=== PATIENT | female | born 1960 | race American Indian/Alaskan Native ===

== ENCOUNTER 2017-06-21 21:53 | Inpatient (IN) | payer MEDICAID ==
[2017-06-21 23:43] LABS: Basophils % (Auto) 1.4 % (0.0-1.8); Eosinophils % (Auto) 1.7 % (0.0-4.3); Hematocrit 40.9 % (30.3-42.9); Hemoglobin 13.4 gm/dl (10.1-14.3); Mean Corpuscular HGB Conc 33 % (30-34); Mean Corpuscular Hemoglobin 31 pg (28-32); Mean Corpuscular Volume 93 fl (79-97); Platelet Count 178 K/mm3 (140-440); Red Blood Count 4.38 M/mm3 (3.65-5.03); Red Cell Distribution Width 18.4 % (13.2-15.2); White Blood Count 3.4 K/mm3 (4.5-11.0)
[2017-06-21 23:55] LABS: Calcium 9.4 mg/dL (8.4-10.2); Chloride 97.2 mmol/L (98-107); Potassium 3.8 mmol/L (3.6-5.0)
[2017-06-22] MEDS ORDERED: ULTRAM PO ONE (08:49)
--- NOTE | 2017-06-22 09:06 | XRay Report ---
Chest 2 views: History: Shortness of breath, chest pain. Findings: Mild cardiomegaly. Suspicion of left pleural effusion. Suspicion of infiltrates left lower lobe. Right lung appears unremarkable. Impression: Cardiomegaly. Suspicion of minimal left pleural effusion and or infiltrate.
[2017-06-22] MEDS ORDERED: LASIX IV ONE (10:23)
[2017-06-22] MEDS ORDERED: BABY ASPIRIN PO ONE (10:23)
--- NOTE | 2017-06-22 10:31 | Emergency Department Report ---
HPI - General Chief Complaint: Dyspnea/Respdistress Time Seen by Provider: 06/22/17 10:07 - HPI HPI: This is a 57 year-old female presents to the emergency department with complaint of a few days of shortness of breath, some left-sided chest pain, swelling to the legs and to the breasts. She says she does not know why her breasts get edema but they have become large and uncomfortable over the past few days. She does say that she has a history of congestive heart failure for which she takes a very small amount of Lasix, 5 mg. She came to visit family about 3 weeks ago and currently lives in [place]. She also has a history of 2 heart valve replacements and an AICD in place as well as a stent in the legs. She has not taken anything for her symptoms prior to presentation. ED Past Medical Hx - Past Medical History Hx Congestive Heart Failure: Yes Additional medical history: gout,c-diff - Surgical History Additional Surgical History: 2 heart valves replaced.AICD,stents in legs - Social History Smoking Status: Never Smoker Substance Use Type: None ED Review of Systems ROS: Stated complaint: SHORTNESS OF BREATH/CHEST PAIN/NUMBNESS IN FINGERS Other details as noted in HPI Comment: All other systems reviewed and negative Constitutional: denies: chills, fever Eyes: denies: eye pain, eye discharge, vision change ENT: denies: ear pain, throat pain Respiratory: orthopnea, shortness of breath Cardiovascular: chest pain, edema Gastrointestinal: denies: abdominal pain, nausea, diarrhea Genitourinary: denies: urgency, dysuria, discharge Musculoskeletal: denies: back pain, joint swelling, arthralgia Skin: denies: rash, lesions Neurological: denies: headache, weakness, paresthesias Physical Exam - Physical Exam Vital Signs: Vital Signs 06/21/17 06/21/17 06/22/17 22:20 22:35 05:46 Temperature 98.2 F 98.2 F 97.7 F Pulse Rate 71 78 78 Respiratory 18 18 18 Rate Blood Pressure 171/87 171/87 158/81 O2 Sat by Pulse 93 94 97 Oximetry 06/22/17 06/22/17 09:51 09:58 Temperature Pulse Rate 76 Respiratory Rate Blood Pressure O2 Sat by Pulse 98 Oximetry Physical Exam: GENERAL: The patient is well-developed well-nourished. HENT: Normocephalic. Atraumatic. Patient has moist mucous membranes. EYES: Extraocular motions are intact. Pupils equal reactive to light bilaterally. NECK: Supple. Trachea is midline. CHEST/LUNGS: Clear to auscultation. There is no respiratory distress noted. HEART/CARDIOVASCULAR: Irregularly irregular with normal rate. No murmur. ABDOMEN: Abdomen is soft, nontender. Patient has normal bowel sounds. There is no abdominal distention. SKIN: Skin is warm and dry. NEURO: The patient is awake, alert, and oriented. The patient is cooperative. The patient has no focal neurologic deficits. The patient has normal speech. MUSCULOSKELETAL: There is no tenderness or deformity. There is no limitation range of motion. There is no evidence of acute injury. ED Course Vital Signs 06/21/17 06/21/17 06/22/17 22:20 22:35 05:46 Temperature 98.2 F 98.2 F 97.7 F Pulse Rate 71 78 78 Respiratory 18 18 18 Rate Blood Pressure 171/87 171/87 158/81 O2 Sat by Pulse 93 94 97 Oximetry 06/22/17 06/22/17 09:51 09:58 Temperature Pulse Rate 76 Respiratory Rate Blood Pressure O2 Sat by Pulse 98 Oximetry ED Medical Decision Making - Lab Data Result diagrams: 06/21/17 23:25 06/21/17 23:25 - EKG Data -: EKG Interpreted by Me - EKG Data When compared to previous EKG there are: previous EKG unavailable Interpretation: other (H a fibrillation, rate of 86, normal axis, no ST elevation CA, T-wave inversions to the lateral leads, Q waves to the septal leads) - Radiology Data Radiology results: report reviewed, image reviewed interpreted by me: Chest x-ray does not show any acute process. There are no pleural effusions, obvious pneumonia and there is no pneumothorax. CTA chest: History: Chest pain shortness of breath. Elevated d-dimer. Findings: The aorta is faintly visualized and grossly appears unremarkable. There is no evidence of pulmonary embolism noted. No pleural or pericardial effusion. Minimal left pleural thickening. Minimal discoid atelectasis left lower lobe. Impression: No definite evidence of pulmonary embolism. Discoid atelectasis left lower lobe. Transcribed By: PTP Dictated By: CHRISTY MILLS MD Electronically Authenticated By: CHRISTY MILLS MD Signed Date/Time: 06/22/17 1152 - Medical Decision Making 57-year-old female presents with some chest pain and shortness of breath as well as some edema to the legs and breast. BNP is greater than 15,000 without any renal insufficiency. Chest x-ray shows some pulmonary vascular congestion. D-dimer elevated to CT angiography was done that did not show any PE or dissection. Troponins have been negative 3 but are equivocal and starting to trend upwards. Patient has a history of atrial fibrillation and is subtherapeutic on her INR. She was given a Lovenox shot. She was given aspirin. She will be admitted to the hospital for further evaluation and treatment has been accepted for admission by the hospitalist, Dr Porras. Critical Care Time: No Critical care attestation.: If time is entered above; I have spent that time in minutes in the direct care of this critically ill patient, excluding procedure time. ED Disposition Clinical Impression: Subtherapeutic international normalized ratio (INR) Chest pain Qualifiers: Chest pain type: unspecified Qualified Code(s): R07.9 - Chest pain, unspecified CHF (congestive heart failure) Qualifiers: Congestive heart failure type: unspecified congestive heart failure type Congestive heart failure chronicity: acute on chronic Qualified Code(s): I50.9 - Heart failure, unspecified Atrial fibrillation Qualifiers: Atrial fibrillation type: unspecified Qualified Code(s): I48.91 - Unspecified atrial fibrillation Disposition: OP ADMIT IP TO THIS HOSP Is pt being admited?: Yes Condition: Stable Instructions: Chest Pain (ED) Referrals: PRIMARY CARE, [Primary Care Provider] - 3-5 Days Time of Disposition: 13:13
[2017-06-22 11:05] LABS: INR 1.26 (0.87-1.13)
[2017-06-22 11:06] LABS: Partial Thromboplastin Time 34.7 Sec. (24.2-36.6)
[2017-06-22] MEDS ORDERED: NACL ONE (11:21)
--- NOTE | 2017-06-22 11:58 | Cat Scan Report ---
CTA chest: History: Chest pain shortness of breath. Elevated d-dimer. Findings: The aorta is faintly visualized and grossly appears unremarkable. There is no evidence of pulmonary embolism noted. No pleural or pericardial effusion. Minimal left pleural thickening. Minimal discoid atelectasis left lower lobe. Impression: No definite evidence of pulmonary embolism. Discoid atelectasis left lower lobe.
[2017-06-22] MEDS ORDERED: LOVENOX SUB-Q ONE (12:16)
[2017-06-22] MEDS ORDERED: DUONEB *Not for PRN Use IH ONE (12:17)
[2017-06-22 12:28] LABS: Bacteria,Urine 1+ /HPF (Negative); Bilirubin,Urine NEG (Negative); Blood,Urine NEG (Negative); Ketones,Urine NEG (Negative); Leukocyte Esterase,Urine NEG (Negative); Mucus,Urine FEW /HPF; Nitrite,Urine NEG (Negative)
[2017-06-22] MEDS ORDERED: DULCOLAX PR PRN (15:28)
[2017-06-22] MEDS ORDERED: ZOFRAN IV PRN (15:28)
[2017-06-22] MEDS ORDERED: MILK OF MAGNESIA PO PRN (15:28)
[2017-06-22] MEDS ORDERED: MORPHINE IV PRN (15:44)
[2017-06-22] MEDS: PERCOCET 5/325 PO PRN (16:26)
--- NOTE | 2017-06-22 16:32 | History and Physical Report ---
History of Present Illness Chief complaint: sob History of present illness: 57 year old woman who states that she is visiting her daughter who just had a baby. She has a history of congestive heart failure, systolic, atrial fibrillation, history of mechanical heart valves, sp MVR metallic on Warfarin. Sp AICD placement, gout, she's currently visiting her daughter from [place]. She states that she takes Lasix everyday. And when her urine output is poor or she gains weight, that she takes double the dose of Lasix. She has tried doing that with no relief. She feels that she's short of breath she has orthopnea she' s gained she thinks anywhere between 10 to 20 pounds of water weight. She's uncomfortable and has really bad dypsnea on exertion. She's also complaining of bilateral lower extremity edema. She feels that her abdomen is swollen. Her breasts are swollen. All her clothes are too tight. She's only able to be comfortable when sitting completely upright. She's not able to recline or lay flat on the bed. She is also c/o constant dull, substernal 4/10 non radiating CP. Past History Past Medical History: other (CHF, afib, MVR-metallic) Past Surgical History: Other (stent in leg, heart valve replacement, sp AICD) Social history: no significant social history Family history: hypertension Medications and Allergies Allergies Allergy/AdvReac Type Severity Reaction Status Date / Time cyclobenzaprine Allergy Itching Verified 06/22/17 10:16 [From Flexeril] lisinopril Allergy Unknown Verified 06/22/17 10:16 Home Medications Medication Instructions Recorded Confirmed Last Taken Type Aspirin 81 mg PO QDAY 06/22/17 06/22/17 Unknown History Carvedilol [Coreg] 3.125 mg PO QDAY 06/22/17 06/22/17 Unknown History Digoxin 06/22/17 Unknown History Gabapentin [Neurontin] 600 mg PO Q8H 06/22/17 06/22/17 Unknown History Iron 06/22/17 Unknown History K-Dur 06/22/17 Unknown History Active Meds: Active Medications Acetaminophen (Tylenol) 650 mg PO Q4H PRN PRN Reason: Pain MILD(1-3)/Fever >100.5/M[place]ANO Albuterol/Ipratropium (Duoneb *Not For Prn Use*) 1 ampul IH Q6HRT [facility] Bisacodyl (Dulcolax) 10 mg [place] QDAY PRN PRN Reason: Constipation unrelieved by MOM Enoxaparin Sodium (Lovenox) 40 mg SUB-Q QDAY [facility] Magnesium Hydroxide (Milk Of Magnesia) 30 ml PO Q4H PRN PRN Reason: Constipation Methylprednisolone Sodium Succinate (Solu-Medrol) 40 mg IV Q24H [facility] Morphine Sulfate (Morphine) 2 mg IV Q4H PRN PRN Reason: Pain, Moderate (4-6) Ondansetron HCl (Zofran) 4 mg IV Q8H PRN PRN Reason: N/V unrelieved by Reglan Oxycodone/Acetaminophen (Percocet 5/325) 1 tab PO Q6H PRN PRN Reason: Pain, Moderate (4-6) Last Admin: 06/22/17 16:26 Dose: 1 tab Review of Systems All systems: negative (as stated in HPI, 14 point review otherwise neg) Exam - Constitutional Vitals: Temp Pulse Resp BP Pulse Ox 97.7 F 76 20 122/97 96 06/22/17 05:46 06/22/17 14:01 06/22/17 16:26 06/22/17 14:01 06/22/17 14:01 General appearance: Present: no acute distress, well-nourished - EENT Eyes: Present: PERRL ENT: hearing intact, clear oral mucosa - Neck Neck: Present: supple, normal ROM - Respiratory Respiratory effort: normal Respiratory: bilateral: diminished (bases) - Cardiovascular Heart Sounds: Present: S1 & S2. Absent: rub, click - Extremities Extremities: pulses symmetrical Extremity abnormal: edema (2 plus bipedal) Peripheral Pulses: within normal limits - Abdominal General gastrointestinal: Present: soft, non-tender, non-distended, normal bowel sounds Female genitourinary: Present: normal - Integumentary Integumentary: Present: clear, warm, dry - Musculoskeletal Musculoskeletal: gait normal, strength equal bilaterally - Psychiatric Psychiatric: appropriate mood/affect, intact judgment & insight - Neurologic Neurologic: CNII-XII intact, moves all extremities Results - Labs CBC & Chem 7: 06/21/17 23:25 06/21/17 23:25 Labs: Laboratory Last Values WBC 3.4 K/mm3 (4.5-11.0) L 06/21/17 23: RBC 4.38 M/mm3 (3.65-5.03) 06/21/17 23:25 Hgb 13.4 gm/dl (10.1-14.3) 06/21/17 23:25 Hct 40.9 % (30.3-42.9) 06/21/17 23:25 MCV 93 fl (79-97) 06/21/17 23:25 MCH 31 pg (28-32) 06/21/17 23:25 MCHC 33 % (30-34) 06/21/17 23: RDW 18.4 % (13.2-15.2) H 06/21/17 23:25 Plt Count 178 K/mm3 (140-440) 06/21/17 23:25 Lymph % (Auto) 34.7 % (13.4-35.0) 06/21/17 23: [place] % (Auto) 14.5 % (0.0-7.3) H 06/21/17 23:25 Eos % (Auto) 1.7 % (0.0-4.3) 06/21/17 23:25 Baso % (Auto) 1.4 % (0.0-1.8) 06/21/17 23:25 Lymph # 1.2 K/mm3 (1.2-5.4) 06/21/17 23:25 [place] # 0.5 K/mm3 (0.0-0.8) 06/21/17 23:25 Eos # 0.1 K/mm3 (0.0-0.4) 06/21/17 23:25 Baso # 0.0 K/mm3 (0.0-0.1) 06/21/17 23:25 Seg Neutrophils % 47.7 % (40.0-70.0) 06/21/17 23: Seg Neutrophils # 1.6 K/mm3 (1.8-7.7) L 06/21/17 23:25 PT 16.4 Sec. (12.2-14.9) H 06/22/17 10:46 INR 1.26 (0.87-1.13) H 06/22/17 10:46 APTT 34.7 Sec. (24.2-36.6) 06/22/17 10:46 D-Dimer 649.18 ng/mlDDU (0-234) H 06/22/17 10:46 Sodium 139 mmol/L (137-145) 06/21/17 23:25 Potassium 3.8 mmol/L (3.6-5.0) 06/21/17 23:25 Chloride 97.2 mmol/L (98-107) L 06/21/17 23:25 Carbon Dioxide 25 mmol/L (22-30) 06/21/17 23:25 Anion Gap 21 mmol/L 06/21/17 23:25 BUN 25 mg/dL (7-17) H 06/21/17 23:25 Creatinine 1.1 mg/dL (0.7-1.2) 06/21/17 23:25 Estimated GFR 51 ml/min 06/21/17 23:25 BUN/Creatinine Ratio 23 % 06/21/17 23:25 Glucose 101 mg/dL (65-100) H 06/21/17 23:25 Calcium 9.4 mg/dL (8.4-10.2) 06/21/17 23:25 Troponin T 0.021 ng/mL (0.00-0.029) 06/22/17 04:39 NT-Pro-B Natriuret Pep 45308 pg/mL (0-900) H 06/21/17 23:25 Urine Color Yellow (Yellow) 06/22/17 11:38 Urine Turbidity Clear (Clear) 06/22/17 11:38 Urine pH 5.0 (5.0-7.0) 06/22/17 11:38 Ur Specific [place] 1.015 (1.003-1.030) 06/22/17 11:38 Urine Protein 100 mg/dl mg/dL (Negative) 06/22/17 11:38 Urine Glucose (UA) Neg mg/dL (Negative) 06/22/17 11:38 Urine Ketones Neg mg/dL (Negative) 06/22/17 11:38 Urine Blood Neg (Negative) 06/22/17 11:38 Urine Nitrite Neg (Negative) 06/22/17 11:38 Urine Bilirubin Neg (Negative) 06/22/17 11:38 Urine Urobilinogen 2.0 mg/dL (<2.0) 06/22/17 11:38 Ur Leukocyte Esterase Neg (Negative) 06/22/17 11:38 Urine WBC (Auto) 2.0 /HPF (0.0-6.0) 06/22/17 11:38 Urine RBC (Auto) 1.0 /HPF (0.0-6.0) 06/22/17 11:38 U Epithel Cells (Auto) 2.0 /HPF (0-13.0) 06/22/17 11:38 Urine Bacteria (Auto) 1+ /HPF (Negative) 06/22/17 11:38 Urine Mucus Few /HPF 06/22/17 11:38 - Imaging and Cardiology Chest x-ray: image reviewed (no infiltrate) Assessment and Plan Assessment and plan: 57 year old past medical history of CHF. Presents with CHF exacerbation CHF exacerbation IV Lasix, check dig level, cardiology consult echo atrial fibrillation with hypercoagulable States continue control medications status post mechanical valve replacements continue warfarin HTN Continue home meds subtherapeutic INR -continue lovenox bridge -pharmacy to dose warfarin, goal INR 2.5 to 3.5 given mechanical valve Chest pain most likely due to CHF -to get stress test when able to lay flat
[2017-06-22] MEDS ORDERED: NON-FORMULARY (Gabapentin [Neurontin] 600 MG) PO SCH (17:15)
[2017-06-22] MEDS: NEURONTIN PO SCH (21:26)
[2017-06-22] MEDS: DUONEB *Not for PRN Use IH SCH (21:51)
[2017-06-22] MEDS ORDERED: LASIX IV SCH (22:00)
[2017-06-23] MEDS: TYLENOL PO PRN (02:31)
[2017-06-23] MEDS: DUONEB *Not for PRN Use IH SCH (03:10)
[2017-06-23] MEDS: NEURONTIN PO SCH ×3 (05:20→21:14)
[2017-06-23] MEDS: LASIX IV SCH ×2 (05:20→18:03)
[2017-06-23] MEDS ORDERED: LOVENOX SUB-Q SCH ×2 (10:00)
[2017-06-23] MEDS ORDERED: LEXISCAN IV ONE ×2 (10:25→10:26)
--- NOTE | 2017-06-23 13:24 | Consultation ---
History of Present Illness Consult date: 06/23/17 Requesting physician: LINSEY TAN Consult reason: chest pain History of present illness: The pt is a 57 YO female with a past medical history significant for HTN, chronic heart failure (diagnosed in 2013), CAD s/p PCI x 1 in 2013, CMP, AICD in situ (placed in 2015), s/p mechanical MVR and AVR, chronic atrial fibrillation, anticoagulated on coumadin, PVD s/p LE stenting in 2013, COPD, former tobacco use. She is previously unknown to our practice. She presented with c/o progressively worsening SOB, bilateral breast swelling and 30lb weight gain for 1 week [employer]. She also reports orthopnea but states this is chronic and unchanged from baseline. She also c/o bilateral breast soreness, but denies chest pain. She here from [place] visiting her daughter who just had a baby and has been here for 3 weeks. She intends to return to [place] soon. She states that she regularly follows a medical appointment clerk in [place]. She reports compliance with her medication regimen and dietary restrictions. She denies any palpitations, n/v, diaphoresis, dizziness or syncope. Past History Past Medical History: atrial fib, CAD, heart failure (systolic), hypertension, PVD, other (mechanical MVR, mechanical AVR) Past Surgical History: Other (stent in leg, mechanical MVR, mechanical AVR, AICD ) Social history: no significant social history, smoking (former) Family history: hypertension Medications and Allergies Allergies Allergy/AdvReac Type Severity Reaction Status Date / Time cyclobenzaprine Allergy Itching Verified 06/22/17 10:16 [From Flexeril] lisinopril Allergy Unknown Verified 06/22/17 10:16 Home Medications Medication Instructions Recorded Confirmed Last Taken Type Aspirin 81 mg PO QDAY 06/22/17 06/22/17 Unknown History Carvedilol [Coreg] 3.125 mg PO QDAY 06/22/17 06/22/17 Unknown History Digoxin 06/22/17 Unknown History Gabapentin [Neurontin] 600 mg PO Q8H 06/22/17 06/22/17 Unknown History Iron 06/22/17 Unknown History K-Dur 06/22/17 Unknown History Active Meds: Active Medications Acetaminophen (Tylenol) 650 mg PO Q4H PRN PRN Reason: Pain MILD(1-3)/Fever >100.5/M[place]ANO Last Admin: 06/23/17 02:31 Dose: 650 mg Aspirin (Baby Aspirin) 81 mg PO QDAY [facility] Bisacodyl (Dulcolax) 10 mg [place] QDAY PRN PRN Reason: Constipation unrelieved by MOM Carvedilol (Coreg) 3.125 mg PO QDAY [facility] Enoxaparin Sodium (Lovenox) 80 mg 1 mg/kg (80 mg) SUB-Q Q12HR [facility] Furosemide (Lasix) 40 mg IV 0600,1800 [facility] Last Admin: 06/23/17 05:20 Dose: 40 mg Gabapentin (Neurontin) 600 mg PO Q8HR [facility] Last Admin: 06/23/17 05:20 Dose: 600 mg Magnesium Hydroxide (Milk Of Magnesia) 30 ml PO Q4H PRN PRN Reason: Constipation Morphine Sulfate (Morphine) 2 mg IV Q4H PRN PRN Reason: Pain, Moderate (4-6) Ondansetron HCl (Zofran) 4 mg IV Q8H PRN PRN Reason: N/V unrelieved by Reglan Oxycodone/Acetaminophen (Percocet 5/325) 1 tab PO Q6H PRN PRN Reason: Pain, Moderate (4-6) Last Admin: 06/22/17 16:26 Dose: 1 tab Warfarin Sodium (Coumadin Pharmacy To Dose) 1 each PO PKCONSULT [facility] PRN Reason: Protocol Warfarin Sodium (Coumadin) 7.5 mg PO DAILY@1700 [facility] Review of Systems Constitutional: weight gain, no weight loss, no fever, no chills, no sweats Ears, nose, mouth and throat: no ear pain, no nose pain, no sinus pressure, no sinus pain Breasts: swelling (bilateral) Cardiovascular: orthopnea, edema, shortness of breath, dyspnea on exertion, paroxysmal nocturnal dyspnea, high blood pressure, leg edema, decreased exercise tolerance, no chest pain, no palpitations, no rapid/irregular heart beat, no syncope, no lightheadedness Respiratory: shortness of breath, dyspnea on exertion, no cough, no congestion, no wheezing, no pain on inspiration Gastrointestinal: no abdominal pain, no nausea, no vomiting, no diarrhea, no constipation, no change in bowel habits Genitourinary Female: no pelvic pain, no flank pain, no dysuria, no urinary frequency, no urgency Musculoskeletal: no neck stiffness, no neck pain, no shooting arm pain, no arm numbness/tingling, no low back pain, no shooting leg pain, no leg numbness/ tingling Integumentary: no rash, no pruritis, no redness, no sores, no wounds Neurological: no head injury, no paralysis, no weakness, no parathesias, no numbness, no tingling, no seizures, no syncope Psychiatric: no anxiety Endocrine: no cold intolerance, no heat intolerance Hematologic/Lymphatic: no easy bruising, no easy bleeding, no lymphadenopathy Allergic/Immunologic: no urticaria, no wheezing, no persistent infections Physical Examination Vital Signs Temp Pulse Resp BP Pulse Ox 98.2 F 71 18 171/87 93 06/21/17 22:20 06/21/17 22:20 06/21/17 22:20 06/21/17 22:20 06/21/17 22:20 General appearance: no acute distress HEENT: Positive: PERRL, Normocephaly, Mucus Membranes Moist Neck: Positive: neck supple, trachea midline Cardiac: Positive: irregularly irregular, S1/S2 Lungs: Positive: clear to auscultation Neuro: Positive: Grossly Intact Abdomen: Positive: Soft. Negative: Tender Skin: Positive: Clear. Negative: Rash, Wound Musculoskeletal: No Pain, Normal Range of Motion Extremities: Absent: edema Results 06/21/17 23:25 06/21/17 23:25 - Imaging and Cardiology Echo: pending EKG: report reviewed, image reviewed EKG interpretations - Telemetry EKG Rhythm: Atrial Fibrillation - EKG Supraventricular dysrhythmia: atrial fibrillation Assessment and Plan Assessment: Acute on chronic systolic heart failure HTN CAD s/p PCI x 1 in 2013 CMP, AICD in situ (placed in 2015) S/p mechanical MVR and AVR Chronic atrial fibrillation wtih CVR - anticoagulated on coumadin Subtherapeutic INR - INR 1.26 Elevated DDimer - chest CTA with no definite evidence of PE PVD s/p LE stenting in 2013 COPD ACEI allergy Plan: s/p lexiscan MPI stress test this AM which was negative for ischemia, EF 10%. Pt reports known reduced EF and heart failure diagnosis since 2013. Await echo. [facility] Cont present medical management. Cont Coumadin and lovenox with tx INR 2-3. D/c lovenox once INR is therapeutic. Assessment and plan reviewed with pt at bedside. The patient has been seen in conjunction with Dr. KRISHNA Giles who agrees with the assessment and plan of care.
[2017-06-23] MEDS: COREG PO SCH (13:43)
[2017-06-23] MEDS: LOVENOX SUB-Q SCH ×3 (13:43→21:17)
[2017-06-23] MEDS: BABY ASPIRIN PO SCH (13:45)
--- NOTE | 2017-06-23 14:18 | Progress Note ---
Assessment and Plan Assessment and plan: Patient is a 54-year-old woman from [facility] area (daughter had a baby) with a history of CHF A. fib, mechanical heart valves, s/p MVR metallic on Warfarin, AICD placement and gout who presents with sob. Acute on chronic systolic heart failure: Treatment with diuresis IV Lasix atrial fibrillation with hypercoagulable States continue control medications status post mechanical valve replacements, S/p mechanical MVR and AVR continue warfarin HTN Continue home meds subtherapeutic INR, 1.26 (most likely very poor compliance) -continue lovenox bridge -pharmacy to dose warfarin, goal INR 2.5 to 3.5 given mechanical valve Chest pain most likely due to CHF Stress test negative, calculated EF 10% History Interval history: Patient was seen and examined. Follow-up on current diagnosis/shortness of breath. Overnight uneventful. Patient denies any chest pain, nausea/vomiting or severe headaches. Imaging, nursing note, chart, labs and old chart reviewed. Discussed with patient. Hospitalist Physical - Physical exam Narrative exam: GEN: WDWN, NAD, AWAKE, ALERT, ORIENTATED x 3 HEENT: NCAT, EOMI, PERRL, OP Clear NECK: supple, no adenopathy, no thyromegaly, no JVD CVS/HEART: RRR, NORMAL S1S2, NO JVD, pulses present bilaterally CHEST/LUNGS: CTA B, Symmetrical chest expansion, good air entry bilaterally, left ppm GI/Abdomen: soft, NTND, good bowel sounds, no guarding or rebound /Bladder: no suprapubic tenderness, no CVA or paraspinal tenderness EXT/Skin: no c/c/e, no obvious rash, multiple right neck and right chest wall scarring from old iv lines. MSK: FROM x 4 Neuro: CN 2-12 grossly intact, no new focal deficits Psych: calm and not she needs refill thank you - Constitutional Vitals: Temp Pulse Resp BP Pulse Ox 98.8 F 81 18 182/87 97 06/23/17 07:49 06/23/17 10:45 06/23/17 07:49 06/23/17 10:45 06/23/17 07:50 General appearance: Present: no acute distress Results - Labs CBC & Chem 7: 06/21/17 23:25 06/21/17 23:25 Labs: Laboratory Last Values WBC 3.4 K/mm3 (4.5-11.0) L 06/21/17 23: RBC 4.38 M/mm3 (3.65-5.03) 06/21/17 23:25 Hgb 13.4 gm/dl (10.1-14.3) 06/21/17 23:25 Hct 40.9 % (30.3-42.9) 06/21/17 23:25 MCV 93 fl (79-97) 06/21/17 23:25 MCH 31 pg (28-32) 06/21/17 23:25 MCHC 33 % (30-34) 06/21/17 23: RDW 18.4 % (13.2-15.2) H 06/21/17 23:25 Plt Count 178 K/mm3 (140-440) 06/21/17 23:25 Lymph % (Auto) 34.7 % (13.4-35.0) 06/21/17 23:25 [place] % (Auto) 14.5 % (0.0-7.3) H 06/21/17 23:25 Eos % (Auto) 1.7 % (0.0-4.3) 06/21/17 23:25 Baso % (Auto) 1.4 % (0.0-1.8) 06/21/17 23:25 Lymph # 1.2 K/mm3 (1.2-5.4) 06/21/17 23:25 [place] # 0.5 K/mm3 (0.0-0.8) 06/21/17 23:25 Eos # 0.1 K/mm3 (0.0-0.4) 06/21/17 23:25 Baso # 0.0 K/mm3 (0.0-0.1) 06/21/17 23:25 Seg Neutrophils % 47.7 % (40.0-70.0) 06/21/17 23:25 Seg Neutrophils # 1.6 K/mm3 (1.8-7.7) L 06/21/17 23:25 PT 16.4 Sec. (12.2-14.9) H 06/22/17 10:46 INR 1.26 (0.87-1.13) H 06/22/17 10:46 APTT 34.7 Sec. (24.2-36.6) 06/22/17 10:46 D-Dimer 649.18 ng/mlDDU (0-234) H 06/22/17 10:46 Sodium 139 mmol/L (137-145) 06/21/17 23:25 Potassium 3.8 mmol/L (3.6-5.0) 06/21/17 23:25 Chloride 97.2 mmol/L (98-107) L 06/21/17 23:25 Carbon Dioxide 25 mmol/L (22-30) 06/21/17 23:25 Anion Gap 21 mmol/L 06/21/17 23:25 BUN 25 mg/dL (7-17) H 06/21/17 23:25 Creatinine 1.1 mg/dL (0.7-1.2) 06/21/17 23:25 Estimated GFR 51 ml/min 06/21/17 23:25 BUN/Creatinine Ratio 23 % 06/21/17 23:25 Glucose 101 mg/dL (65-100) H 06/21/17 23:25 Calcium 9.4 mg/dL (8.4-10.2) 06/21/17 23:25 Troponin T 0.021 ng/mL (0.00-0.029) 06/22/17 04:39 NT-Pro-B Natriuret Pep 75191 pg/mL (0-900) H 06/21/17 23:25 Urine Color Yellow (Yellow) 06/22/17 11:38 Urine Turbidity Clear (Clear) 06/22/17 11:38 Urine pH 5.0 (5.0-7.0) 06/22/17 11:38 Ur Specific [place] 1.015 (1.003-1.030) 06/22/17 11:38 Urine Protein 100 mg/dl mg/dL (Negative) 06/22/17 11:38 Urine Glucose (UA) Neg mg/dL (Negative) 06/22/17 11:38 Urine Ketones Neg mg/dL (Negative) 06/22/17 11:38 Urine Blood Neg (Negative) 06/22/17 11:38 Urine Nitrite Neg (Negative) 06/22/17 11:38 Urine Bilirubin Neg (Negative) 06/22/17 11:38 Urine Urobilinogen 2.0 mg/dL (<2.0) 06/22/17 11:38 Ur Leukocyte Esterase Neg (Negative) 06/22/17 11:38 Urine WBC (Auto) 2.0 /HPF (0.0-6.0) 06/22/17 11:38 Urine RBC (Auto) 1.0 /HPF (0.0-6.0) 06/22/17 11:38 U Epithel Cells (Auto) 2.0 /HPF (0-13.0) 06/22/17 11:38 Urine Bacteria (Auto) 1+ /HPF (Negative) 06/22/17 11:38 Urine Mucus Few /HPF 06/22/17 11:38 Digoxin 1.4 ng/mL (0.9-2.0) 06/23/17 05:29
[2017-06-23] MEDS ORDERED: LOMOTIL PO ONE (18:00)
[2017-06-23] MEDS: COUMADIN PO SCH (18:03)
--- NOTE | 2017-06-24 01:15 | Treadmill Report ---
NUCLEAR PERFUSION SCAN REFERRING PHYSICIAN: Hospitalist service. PROTOCOL: The patient was brought to the stress lab in a postoperative state, given 10 mCi of technetium 99m at rest. The patient underwent rest imaging. The patient underwent Lexiscan stress test. At peak stress, the patient was given 28 mCi of technetium 99m. Shortly thereafter, the patient underwent stress imaging. Raw imaging reveals mild GI artifact. No significant motion artifact. SPECT imaging examined carefully in horizontal long axis, vertical long axis, and short axis views. Imaging reveals a moderately dilated left ventricular chamber in systole and diastole without evidence of significant fixed or reversible perfusion defect suggestive of prior infarction or ischemia. Gated wall motion reveals severe global left ventricular hypokinesis with a calculated ejection fraction of 10%. CONCLUSION: 1. No overt evidence of ischemia or prior infarction. 2. Moderately dilated left ventricular chamber size, systole and diastole with severe global left hypokinesis with a calculated ejection fraction of 10%. JOB# [id number] GEORGE/EVELIA
[2017-06-24] MEDS: PERCOCET 5/325 PO PRN ×3 (02:03→22:55)
[2017-06-24 06:03] LABS: Hematocrit 38.3 % (30.3-42.9); Hemoglobin 12.5 gm/dl (10.1-14.3); Mean Corpuscular HGB Conc 33 % (30-34); Mean Corpuscular Hemoglobin 31 pg (28-32); Mean Corpuscular Volume 94 fl (79-97); Platelet Count 146 K/mm3 (140-440); Red Blood Count 4.06 M/mm3 (3.65-5.03); White Blood Count 3.4 K/mm3 (4.5-11.0)
[2017-06-24 06:14] LABS: INR 1.3 (0.87-1.13)
[2017-06-24 06:18] LABS: Calcium 9.1 mg/dL (8.4-10.2); Potassium 3.9 mmol/L (3.6-5.0)
[2017-06-24] MEDS: NEURONTIN PO SCH ×3 (06:20→22:52)
[2017-06-24] MEDS: LASIX IV SCH ×2 (06:20→17:17)
[2017-06-24] MEDS: COREG PO SCH (09:04)
[2017-06-24] MEDS: BABY ASPIRIN PO SCH (09:04)
[2017-06-24] MEDS: LOVENOX SUB-Q SCH (09:04)
--- NOTE | 2017-06-24 11:54 | Progress Note ---
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 HTN CAD s/p PCI x 1 in 2013 Dilated CMP, AICD in situ (placed in 2015) - presumably nonischemic as stress test negative for ischemia; pt with known CMP, last known EF 5-10% 05/2017 per [facility] in [place] S/p bio-prosthetic MVR and AVR Chronic atrial fibrillation wtih CVR - anticoagulated on coumadin Subtherapeutic INR Elevated DDimer - chest CTA with no definite evidence of PE PVD s/p LE stenting in 2013 COPD ACEI allergy Pulmonary HTN - RVSP 82mmHg Plan: Echo reviewed - EF 10-15%, LV mild to moderately dilated, abnormal LV diastolic function, LA moderate to severely dilated, RV mildly dilated, RV systolic function severely reduced, pacemaker wire in RV and RA, mild to mod AR, bio- prosthetic AV, paravalvular lead of bio-prosthetic AV, mild MR, bioprosthetic MV present with ? paravalvular lead at the anterior strut, abnormal regurgitation of the bio-prosthetic MV, mild to mod TR, severe pulm HTN wtih RVSP 82mmHg, mild to mod MA. Medical records from [place] reviewed. Cont present medical management. Cont Coumadin and lovenox with tx INR 2-3. D/c lovenox once INR is therapeutic. Assessment and plan reviewed with pt at bedside. The patient has been seen in conjunction with Dr. KRISHNA Giles who agrees with the assessment and plan of care. Subjective Date of service: 06/24/17 Principal diagnosis: HF Interval history: resting in bed, SOB improving. VSS. Objective Last Vital Signs Temp 97.6 F 06/24/17 08:50 Pulse 91 H 06/24/17 09:00 Resp 18 06/24/17 08:50 BP 149/86 06/24/17 08:50 Pulse Ox 99 06/24/17 08:50 - Physical Examination General: No Apparent Distress HEENT: Positive: PERRL, Normocephaly, Mucus Membranes Moist Neck: Positive: neck supple, trachea midline Cardiac: Positive: irregularly irregular, S1/S2 Lungs: Positive: Decreased Breath Sounds Neuro: Positive: Grossly Intact Abdomen: Positive: Soft. Negative: Tender Skin: Positive: Clear. Negative: Rash, Wound Musculoskeletal: No Pain, Normal Range of Motion Extremities: Absent: edema - Labs and Meds Coagulation 06/24/17 Range/Units 05:48 PT 16.8 H (12.2-14.9) Sec. INR 1.30 H (0.87-1.13) CBC 06/24/17 Range/Units 05:48 WBC 3.4 L (4.5-11.0) K/mm3 RBC 4.06 (3.65-5.03) M/mm3 Hgb 12.5 (10.1-14.3) gm/dl Hct 38.3 (30.3-42.9) % Plt Count 146 (140-440) K/mm3 Comprehensive Metabolic Panel 06/24/17 Range/Units 05:48 Sodium 137 (137-145) mmol/L Potassium 3.9 (3.6-5.0) mmol/L Chloride 96.0 L (98-107) mmol/L Carbon Dioxide 26 (22-30) mmol/L BUN 25 H (7-17) mg/dL Creatinine 1.3 H (0.7-1.2) mg/dL Glucose 93 (65-100) mg/dL Calcium 9.1 (8.4-10.2) mg/dL - Imaging and Cardiology EKG: report reviewed, image reviewed Echo: report reviewed - Telemetry EKG Rhythm: Atrial Fibrillation
[2017-06-24] MEDS: HEPARIN/ 0.45% NACL-25,000 UNIT/500 ML 25,000 UNIT/500 ML BAG IV SCH (12:59)
--- NOTE | 2017-06-24 17:04 | Progress Note ---
Assessment and Plan Assessment and plan: Patient is a 54-year-old woman from [place] visiting [facility] (daughter had a baby) with a history of CHF A. fib, mechanical heart valves, s/p MVR bioprosthetic and with multiple valvular issues on Warfarin, AICD placement and gout who presents with sob. Acute on chronic systolic heart failure: continue diuresis with IV lasix, daily weight, I/O, BB, STATIN, patient has allergy to ACEI atrial fibrillation with hypercoagulable States, Heparin Bridge, discontinue lovenox, BB status post mechanical valve replacements, S/p mechanical MVR and AVR, continue warfarin HTN-Continue home meds Dilated CMP, AICD in situ (placed in 2015) - per cardiology, presumably nonischemic as stress test negative for ischemia; pt with known CMP, last known EF 5-10% 05/2017 per [facility] subtherapeutic INR, 1.26 (most likely very poor compliance) Refused Lovenox, started on Heparin, -pharmacy to dose warfarin, goal INR 2- 3 -Bioprosthetic valve, complaince with medication questioned, although patient reports compliance and with known fluctuation of INR and currently in discussion to change to Eliqus. 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 But reports that she is not feeling better despite what she told the dentist private practice that she is improving. The Nursing staff report that patient refused lovenox, she reports she is willing to take heparin instead. Hospitalist Physical - Physical exam Narrative exam: GEN: WDWN, NAD, AWAKE, ALERT, ORIENTATED x 3 HEENT: NCAT, EOMI, PERRL, OP Clear NECK: supple, no adenopathy, no thyromegaly, no JVD CVS/HEART: RRR, NORMAL S1S2, NO JVD, pulses present bilaterally CHEST/LUNGS: CTA B, Symmetrical chest expansion, good air entry bilaterally, left ppm GI/Abdomen: soft, NTND, good bowel sounds, no guarding or rebound /Bladder: no suprapubic tenderness, no CVA or paraspinal tenderness EXT/Skin: no c/c, no obvious rash, multiple right neck and right chest wall scarring from old iv lines.. Trace bilateral edema MSK: FROM x 4 Neuro: CN 2-12 grossly intact, no new focal deficits Psych: calm - Constitutional Vitals: Temp Pulse Resp BP Pulse Ox 98.1 F 77 18 138/81 100 06/24/17 12:54 06/24/17 12:54 06/24/17 12:54 06/24/17 12:54 06/24/17 12:54 General appearance: Present: no acute distress Results - Labs CBC & Chem 7: 06/24/17 05:48 06/24/17 05:48 Labs: Laboratory Last Values WBC 3.4 K/mm3 (4.5-11.0) L 06/24/17 05:48 RBC 4.06 M/mm3 (3.65-5.03) 06/24/17 05:48 Hgb 12.5 gm/dl (10.1-14.3) 06/24/17 05:48 Hct 38.3 % (30.3-42.9) 06/24/17 05:48 MCV 94 fl (79-97) 06/24/17 05:48 MCH 31 pg (28-32) 06/24/17 05:48 MCHC 33 % (30-34) 06/24/17 05:48 RDW 18.0 % (13.2-15.2) H 06/24/17 05:48 Plt Count 146 K/mm3 (140-440) 06/24/17 05:48 Lymph % (Auto) 34.7 % (13.4-35.0) 06/21/17 23:25 [place] % (Auto) 14.5 % (0.0-7.3) H 06/21/17 23:25 Eos % (Auto) 1.7 % (0.0-4.3) 06/21/17 23:25 Baso % (Auto) 1.4 % (0.0-1.8) 06/21/17 23:25 Lymph # 1.2 K/mm3 (1.2-5.4) 06/21/17 23:25 [place] # 0.5 K/mm3 (0.0-0.8) 06/21/17 23:25 Eos # 0.1 K/mm3 (0.0-0.4) 06/21/17 23:25 Baso # 0.0 K/mm3 (0.0-0.1) 06/21/17 23:25 Seg Neutrophils % 47.7 % (40.0-70.0) 06/21/17 23:25 Seg Neutrophils # 1.6 K/mm3 (1.8-7.7) L 06/21/17 23:25 PT 16.8 Sec. (12.2-14.9) H 06/24/17 05:48 INR 1.30 (0.87-1.13) H 06/24/17 05:48 APTT 34.7 Sec. (24.2-36.6) 06/22/17 10:46 D-Dimer 649.18 ng/mlDDU (0-234) H 06/22/17 10:46 Sodium 137 mmol/L (137-145) 06/24/17 05:48 Potassium 3.9 mmol/L (3.6-5.0) 06/24/17 05:48 Chloride 96.0 mmol/L (98-107) L 06/24/17 05:48 Carbon Dioxide 26 mmol/L (22-30) 06/24/17 05:48 Anion Gap 19 mmol/L 06/24/17 05:48 BUN 25 mg/dL (7-17) H 06/24/17 05:48 Creatinine 1.3 mg/dL (0.7-1.2) H 06/24/17 05:48 Estimated GFR 51 ml/min 06/24/17 05:48 BUN/Creatinine Ratio 19 % 06/24/17 05:48 Glucose 93 mg/dL (65-100) 06/24/17 05:48 Calcium 9.1 mg/dL (8.4-10.2) 06/24/17 05:48 Troponin T 0.021 ng/mL (0.00-0.029) 06/22/17 04:39 NT-Pro-B Natriuret Pep 08442 pg/mL (0-900) H 06/21/17 23:25 Urine Color Yellow (Yellow) 06/22/17 11:38 Urine Turbidity Clear (Clear) 06/22/17 11:38 Urine pH 5.0 (5.0-7.0) 06/22/17 11:38 Ur Specific [place] 1.015 (1.003-1.030) 06/22/17 11:38 Urine Protein 100 mg/dl mg/dL (Negative) 06/22/17 11:38 Urine Glucose (UA) Neg mg/dL (Negative) 06/22/17 11:38 Urine Ketones Neg mg/dL (Negative) 06/22/17 11:38 Urine Blood Neg (Negative) 06/22/17 11:38 Urine Nitrite Neg (Negative) 06/22/17 11:38 Urine Bilirubin Neg (Negative) 06/22/17 11:38 Urine Urobilinogen 2.0 mg/dL (<2.0) 06/22/17 11:38 Ur Leukocyte Esterase Neg (Negative) 06/22/17 11:38 Urine WBC (Auto) 2.0 /HPF (0.0-6.0) 06/22/17 11:38 Urine RBC (Auto) 1.0 /HPF (0.0-6.0) 06/22/17 11:38 U Epithel Cells (Auto) 2.0 /HPF (0-13.0) 06/22/17 11:38 Urine Bacteria (Auto) 1+ /HPF (Negative) 06/22/17 11:38 Urine Mucus Few /HPF 06/22/17 11:38 Digoxin 1.4 ng/mL (0.9-2.0) 06/23/17 05:29
[2017-06-24] MEDS: COUMADIN PO SCH (17:13)
[2017-06-25] MEDS: TYLENOL PO PRN (02:44)
[2017-06-25 06:12] LABS: Hematocrit 38.8 % (30.3-42.9); Hemoglobin 12.4 gm/dl (10.1-14.3); Mean Corpuscular HGB Conc 32 % (30-34); Mean Corpuscular Hemoglobin 30 pg (28-32); Mean Corpuscular Volume 93 fl (79-97); Platelet Count 158 K/mm3 (140-440); Red Blood Count 4.16 M/mm3 (3.65-5.03); White Blood Count 3.6 K/mm3 (4.5-11.0)
[2017-06-25] MEDS: LASIX IV SCH (06:14)
[2017-06-25] MEDS: NEURONTIN PO SCH ×3 (06:14→22:56)
[2017-06-25 06:24] LABS: INR 1.61 (0.87-1.13)
[2017-06-25 06:35] LABS: Calcium 9.1 mg/dL (8.4-10.2); Chloride 94.1 mmol/L (98-107); Potassium 3.9 mmol/L (3.6-5.0)
[2017-06-25] MEDS: BABY ASPIRIN PO SCH (09:34)
[2017-06-25] MEDS: COREG PO SCH (09:34)
[2017-06-25] MEDS: HEPARIN/ 0.45% NACL-25,000 UNIT/500 ML 25,000 UNIT/500 ML BAG IV SCH (09:36)
--- NOTE | 2017-06-25 10:45 | Progress Note ---
Assessment and Plan Assessment and plan: Patient is a 54-year-old woman from [facility] (daughter had a baby) with a history of CHF A. fib, mechanical heart valves, s/p MVR bioprosthetic and with multiple valvular issues on Warfarin, AICD placement and gout who presents with sob. Acute on chronic systolic heart failure: continue diuresis but change to bumex, daily weight, I/O, BB, STATIN, patient has allergy to ACEI atrial fibrillation with hypercoagulable States, Heparin Bridge, discontinue lovenox, BB status post mechanical valve replacements, S/p mechanical MVR and AVR, continue warfarin HTN-Continue home meds Dilated CMP, AICD in situ (placed in 2015) - per cardiology, presumably nonischemic as stress test negative for ischemia; pt with known CMP, last known EF 5-10% 05/2017 per [facility] subtherapeutic INR, 1.6 (most likely very poor compliance) Refused Lovenox, started on Heparin, -pharmacy to dose warfarin, goal INR 2- 3 -Bioprosthetic valve, complaince with medication questioned, although patient reports compliance and with known fluctuation of INR and currently in discussion to change to Eliqus. 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 I.6 INR TODAY PVD s/p LE stenting in 2013 COPD Continue nebs NIKUNJ likey iatrogenic secondary to pre-renal from diuresis. Pulmonary HTN - RVSP 82mmHg DVT/GI prophy Plan of care discussed with the patient and also with undercoat sprayer History Interval history: Patient seen and examined today in no acute distress. She still reports that she has not been up as much urine as she would like to I did present her evidence that shows that she is 3 L negative since she has been here she stated that she would like to be changed to Bumex. I discussed this cardiology apparently she has been taking her Coumadin as she reports but states that whenever he changes made she does not check her INR until her next doctor's visit which is likely the reason why she has been significantly subtherapeutic Hospitalist Physical - Physical exam Narrative exam: GEN: WDWN, NAD, AWAKE, ALERT, ORIENTATED x 3 HEENT: NCAT, EOMI, PERRL, OP Clear NECK: supple, no adenopathy, no thyromegaly, no JVD CVS/HEART: RRR, NORMAL S1S2, NO JVD, pulses present bilaterally CHEST/LUNGS: CTA B, Symmetrical chest expansion, good air entry bilaterally, left ppm GI/Abdomen: soft, NTND, good bowel sounds, no guarding or rebound /Bladder: no suprapubic tenderness, no CVA or paraspinal tenderness EXT/Skin: no c/c, no obvious rash, multiple right neck and right chest wall scarring from old iv lines.. no edema MSK: FROM x 4 Neuro: CN 2-12 grossly intact, no new focal deficits Psych: calm - Constitutional Vitals: Temp Pulse Resp BP Pulse Ox 97.7 F 20 L 20 167/102 94 06/25/17 08:59 06/25/17 08:59 06/25/17 04:13 06/25/17 08:59 06/25/17 04:13 General appearance: Present: no acute distress Results - Labs CBC & Chem 7: 06/25/17 05:32 06/25/17 05:32 Labs: Laboratory Last Values WBC 3.6 K/mm3 (4.5-11.0) L 06/25/17 05:32 RBC 4.16 M/mm3 (3.65-5.03) 06/25/17 05:32 Hgb 12.4 gm/dl (10.1-14.3) 06/25/17 05:32 Hct 38.8 % (30.3-42.9) 06/25/17 05:32 MCV 93 fl (79-97) 06/25/17 05:32 MCH 30 pg (28-32) 06/25/17 05:32 MCHC 32 % (30-34) 06/25/17 05:32 RDW 18.0 % (13.2-15.2) H 06/25/17 05:32 Plt Count 158 K/mm3 (140-440) 06/25/17 05:32 Lymph % (Auto) 34.7 % (13.4-35.0) 06/21/17 23:25 [place] % (Auto) 14.5 % (0.0-7.3) H 06/21/17 23:25 Eos % (Auto) 1.7 % (0.0-4.3) 06/21/17 23:25 Baso % (Auto) 1.4 % (0.0-1.8) 06/21/17 23:25 Lymph # 1.2 K/mm3 (1.2-5.4) 06/21/17 23:25 [place] # 0.5 K/mm3 (0.0-0.8) 06/21/17 23:25 Eos # 0.1 K/mm3 (0.0-0.4) 06/21/17 23:25 Baso # 0.0 K/mm3 (0.0-0.1) 06/21/17 23:25 Seg Neutrophils % 47.7 % (40.0-70.0) 06/21/17 23:25 Seg Neutrophils # 1.6 K/mm3 (1.8-7.7) L 06/21/17 23:25 PT 19.9 Sec. (12.2-14.9) H 06/25/17 05:32 INR 1.61 (0.87-1.13) H 06/25/17 05:32 APTT 34.7 Sec. (24.2-36.6) 06/22/17 10:46 D-Dimer 649.18 ng/mlDDU (0-234) H 06/22/17 10:46 Heparin Anti-Xa Level 0.63 U.I./ml (0.3-0.7) 06/25/17 05:32 Sodium 136 mmol/L (137-145) L 06/25/17 05:32 Potassium 3.9 mmol/L (3.6-5.0) 06/25/17 05:32 Chloride 94.1 mmol/L (98-107) L 06/25/17 05:32 Carbon Dioxide 23 mmol/L (22-30) 06/25/17 05:32 Anion Gap 23 mmol/L 06/25/17 05:32 BUN 27 mg/dL (7-17) H 06/25/17 05:32 Creatinine 1.4 mg/dL (0.7-1.2) H 06/25/17 05:32 Estimated GFR 47 ml/min 06/25/17 05:32 BUN/Creatinine Ratio 19 % 06/25/17 05:32 Glucose 91 mg/dL (65-100) 06/25/17 05:32 Calcium 9.1 mg/dL (8.4-10.2) 06/25/17 05:32 Troponin T 0.021 ng/mL (0.00-0.029) 06/22/17 04:39 NT-Pro-B Natriuret Pep 37401 pg/mL (0-900) H 06/21/17 23:25 Urine Color Yellow (Yellow) 06/22/17 11:38 Urine Turbidity Clear (Clear) 06/22/17 11:38 Urine pH 5.0 (5.0-7.0) 06/22/17 11:38 Ur Specific [place] 1.015 (1.003-1.030) 06/22/17 11:38 Urine Protein 100 mg/dl mg/dL (Negative) 06/22/17 11:38 Urine Glucose (UA) Neg mg/dL (Negative) 06/22/17 11:38 Urine Ketones Neg mg/dL (Negative) 06/22/17 11:38 Urine Blood Neg (Negative) 06/22/17 11:38 Urine Nitrite Neg (Negative) 06/22/17 11:38 Urine Bilirubin Neg (Negative) 06/22/17 11:38 Urine Urobilinogen 2.0 mg/dL (<2.0) 06/22/17 11:38 Ur Leukocyte Esterase Neg (Negative) 06/22/17 11:38 Urine WBC (Auto) 2.0 /HPF (0.0-6.0) 06/22/17 11:38 Urine RBC (Auto) 1.0 /HPF (0.0-6.0) 06/22/17 11:38 U Epithel Cells (Auto) 2.0 /HPF (0-13.0) 06/22/17 11:38 Urine Bacteria (Auto) 1+ /HPF (Negative) 06/22/17 11:38 Urine Mucus Few /HPF 06/22/17 11:38 Digoxin 1.4 ng/mL (0.9-2.0) 06/23/17 05:29
--- NOTE | 2017-06-25 12:19 | Progress Note ---
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 Pt nearing euvolemia. Cont Coumadin and heparin gtt with tx INR 2-3. D/c heparin once INR is therapeutic. Assessment and plan reviewed with pt at bedside. The patient has been seen in conjunction with Dr. KRISHNA Giles who agrees with the assessment and plan of care. Subjective Date of service: 06/25/17 Principal diagnosis: HF Interval history: resting in bed, SOB improving. VSS. Objective Last Vital Signs Temp 97.7 F 06/25/17 08:59 Pulse 20 L 06/25/17 08:59 Resp 20 06/25/17 04:13 BP 167/102 06/25/17 08:59 Pulse Ox 94 06/25/17 04:13 - Physical Examination General: No Apparent Distress HEENT: Positive: PERRL, Normocephaly, Mucus Membranes Moist Neck: Positive: neck supple, trachea midline Cardiac: Positive: irregularly irregular, S1/S2 Lungs: Positive: Decreased Breath Sounds Neuro: Positive: Grossly Intact Abdomen: Positive: Soft. Negative: Tender Skin: Positive: Clear. Negative: Rash, Wound Musculoskeletal: No Pain, Normal Range of Motion Extremities: Absent: edema - Labs and Meds Coagulation 06/25/17 Range/Units 05:32 PT 19.9 H (12.2-14.9) Sec. INR 1.61 H (0.87-1.13) CBC 06/25/17 Range/Units 05:32 WBC 3.6 L (4.5-11.0) K/mm3 RBC 4.16 (3.65-5.03) M/mm3 Hgb 12.4 (10.1-14.3) gm/dl Hct 38.8 (30.3-42.9) % Plt Count 158 (140-440) K/mm3 Comprehensive Metabolic Panel 06/25/17 Range/Units 05:32 Sodium 136 L (137-145) mmol/L Potassium 3.9 (3.6-5.0) mmol/L Chloride 94.1 L (98-107) mmol/L Carbon Dioxide 23 (22-30) mmol/L BUN 27 H (7-17) mg/dL Creatinine 1.4 H (0.7-1.2) mg/dL Glucose 91 (65-100) mg/dL Calcium 9.1 (8.4-10.2) mg/dL - Imaging and Cardiology EKG: report reviewed, image reviewed Echo: report reviewed
[2017-06-25] MEDS: BUMEX IV SCH (17:51)
[2017-06-25] MEDS: COUMADIN PO SCH (17:51)
[2017-06-25] MEDS: PERCOCET 5/325 PO PRN (18:59)
[2017-06-26 05:48] LABS: Hematocrit 38.6 % (30.3-42.9); Hemoglobin 12.7 gm/dl (10.1-14.3); Mean Corpuscular HGB Conc 33 % (30-34); Mean Corpuscular Hemoglobin 31 pg (28-32); Mean Corpuscular Volume 93 fl (79-97); Red Blood Count 4.15 M/mm3 (3.65-5.03); Red Cell Distribution Width 18.2 % (13.2-15.2); White Blood Count 3.5 K/mm3 (4.5-11.0)
[2017-06-26 05:55] LABS: Platelet Count 152 K/mm3 (140-440)
[2017-06-26 05:59] LABS: INR 1.93 (0.87-1.13)
[2017-06-26 06:02] LABS: Calcium 9.2 mg/dL (8.4-10.2); Chloride 94.7 mmol/L (98-107); Potassium 3.8 mmol/L (3.6-5.0)
[2017-06-26] MEDS: NEURONTIN PO SCH ×2 (06:23→13:27)
[2017-06-26] MEDS: BUMEX IV SCH (06:23)
[2017-06-26] MEDS: COREG PO SCH (09:47)
[2017-06-26] MEDS: BABY ASPIRIN PO SCH (09:48)
--- NOTE | 2017-06-26 11:51 | Progress Note ---
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 Cont all other present cardiac management. Currently stable cardiac status. Nothing further to add from cardiac perspective at this time. Pt is to follow up with her primary parent coach in [place] within 1 week of hospital discharge. Assessment and plan reviewed with pt at bedside. The patient has been seen in conjunction with Dr. Alice Giles who agrees with the assessment and plan of care. Subjective Date of service: 06/26/17 Principal diagnosis: HF Interval history: resting in bed, no current complaints. states she is ready to go home. Objective Last Vital Signs Temp 98.4 F 06/26/17 08:36 Pulse 60 06/26/17 09:47 Resp 18 06/26/17 08:36 BP 182/92 06/26/17 09:47 Pulse Ox 95 06/26/17 08:36 - Physical Examination General: No Apparent Distress HEENT: Positive: PERRL, Normocephaly, Mucus Membranes Moist Neck: Positive: neck supple, trachea midline Cardiac: Positive: Reg Rate and Rhythm, irregularly irregular, S1/S2 Lungs: Positive: Decreased Breath Sounds Neuro: Positive: Grossly Intact Abdomen: Positive: Soft. Negative: Tender Skin: Positive: Clear. Negative: Rash, Wound Musculoskeletal: No Pain, Normal Range of Motion Extremities: Absent: edema - Labs and Meds Coagulation 06/26/17 Range/Units 04:36 PT 23.0 H (12.2-14.9) Sec. INR 1.93 H (0.87-1.13) CBC 06/26/17 Range/Units 04:36 WBC 3.5 L (4.5-11.0) K/mm3 RBC 4.15 (3.65-5.03) M/mm3 Hgb 12.7 (10.1-14.3) gm/dl Hct 38.6 (30.3-42.9) % Plt Count 152 (140-440) K/mm3 Comprehensive Metabolic Panel 06/26/17 Range/Units 04:36 Sodium 136 L (137-145) mmol/L Potassium 3.8 (3.6-5.0) mmol/L Chloride 94.7 L (98-107) mmol/L Carbon Dioxide 21 L (22-30) mmol/L BUN 28 H (7-17) mg/dL Creatinine 1.2 (0.7-1.2) mg/dL Glucose 92 (65-100) mg/dL Calcium 9.2 (8.4-10.2) mg/dL - Imaging and Cardiology EKG: report reviewed, image reviewed Echo: report reviewed
--- NOTE | 2017-06-26 12:51 | Discharge Summary ---
Providers - Providers Date of Admission: 06/22/17 15:28 Attending physician: HERMILA CHENG MD 06/22/17 15:54 Consult to Physician [CONS] Routine Consulting Provider: KELSIE CANALES Reason For Exam: chest pain Place consult to:: Dr. Canales Notified:: Mavis BAUTISTA Phone number called:: Was contact made?: Yes If yes, spoke with:: [facility]ana-answering service Time called:: 18:03 Primary care physician: ATHLETIC COACH Hospitalization Reason for admission: SHORTNESS OF BREATH Condition: Stable Hospital course: Patient is a 54-year-old woman from [facility] (daughter had a baby) with a history of CHF A. fib, mechanical heart valves, s/p MVR bioprosthetic and with multiple valvular issues on Warfarin, AICD placement and gout who presents with sob. Patient was noted to have Acute heart failure, and started on Lasix IV, was subsequently changed to Bumex due to patient stating that the lasix was not working, although we have documented 3 litter volume deficit. Patient was also noted to have Subtherapeutic INR secondary to non compliance with checking Level. We provided extensive counselling about testing to ensure that changes do not result in supra or subtherapeutic INR. she was placed on Heparin drip after she refused IV LOVENOX and continued on warfarin with INR now 1.93. Also it is noted that she has bioprosthetic valve and not mechanical value as she earlier alluded. she is clinically improved at this time and stable for discharge with Heart failure instructions provided. 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 HTN CAD s/p PCI x 1 in 2013 Dilated CMP, AICD in situ (placed in 2015) CMP, last known EF 5-10% 05/2017 S/p bio-prosthetic MVR and AVR Chronic atrial fibrillation wtih CVR Subtherapeutic INR Elevated DDimer - chest CTA with no definite evidence of PE PVD s/p LE stenting in 2013 COPD ACEI allergy Pulmonary HTN - RVSP 82mmHg Disposition: TO HOME OR SELFCARE Time spent for discharge: 35 mins Core Measure Documentation - Palliative Care Palliative Care/ Comfort Measures: Not Applicable - Core Measures Any of the following diagnoses?: none - VTE Discharge Requirements Deep Vein Thrombosis/Pulmonary Embolism Present on Admission: No Exam - Physical Exam Narrative exam: GEN: WDWN, NAD, AWAKE, ALERT, ORIENTATED x 3 HEENT: NCAT, EOMI, PERRL, OP Clear NECK: supple, no adenopathy, no thyromegaly, no JVD CVS/HEART: RRR, NORMAL S1S2, NO JVD, pulses present bilaterally CHEST/LUNGS: CTA B, Symmetrical chest expansion, good air entry bilaterally, left ppm GI/Abdomen: soft, NTND, good bowel sounds, no guarding or rebound /Bladder: no suprapubic tenderness, no CVA or paraspinal tenderness EXT/Skin: no c/c, no obvious rash, multiple right neck and right chest wall scarring from old iv lines.. no edema MSK: FROM x 4 Neuro: CN 2-12 grossly intact, no new focal deficits Psych: calm - Constitutional Vitals: Temp Pulse Resp BP Pulse Ox 98.4 F 60 18 182/92 95 06/26/17 08:36 06/26/17 09:47 06/26/17 08:36 06/26/17 09:47 06/26/17 08:36 Plan Activity: advance as tolerated, fall precautions Diet: low salt Special Instructions: record daily weights, record daily BP diary Additional Instructions: INR check on Friday- Discuss result with your PCP. Follow up with: WILLIAM HERRERA MD [Primary Care Provider] - 3-5 Days [facility] [Outside] - 06/30/17 Forms: Warfarin Discharge Instruction Prescriptions: Furosemide [Lasix TAB] 40 mg PO 0600,1800 #60 tablet Warfarin [Coumadin] 5 mg PO QDAY #45 tablet
--- NOTE | 2017-06-26 13:02 | Query- General ---
Dear Meliza Date:___06/26/17 Sales Planning Manager/CDS: Jose Luis Phone#:___[phone] Exercise your independent professional judgment when responding to this query. Questions asked do not imply a particular answer is desired or expected. We greatly appreciate your clarification on this issue. Clinical Documentation States: 57 year old female was admitted on 06/22/17 The Progress note (Dr. brewer 06/25/17) states " Assessment and plan: Patient is a 54-year-old woman with a history of CHF A. fib, mechanical heart valves, s/p MVR bioprosthetic and with multiple valvular issues on Warfarin, AICD placement and gout who presents with sob. Acute on chronic systolic heart failure: " Clinical Findings Show (include reference to source document): 06/21/17 06/25/17 06/26/17 Creatinine: 1.1 1.4 1.2 BUN: 25 27 28 BUN/Creatinine Ratio: 23 19 23 Given the above clinical scenario can you please provide an appropriate diagnosis based on your knowledge of the patient: PHYSICIAN RESPONSE: [ ] Tubular Necrosis [ ] Cortical Necrosis [X ]Vasomotor Nephropathy [ ] Tubular Nephrosis [ ] Other (Please specify): [ ] Clinically undeterminable Present on Admission: [ X] Yes (Y) [ ] Clinically undeterminable (W) [ ]No(N) Please also document response in your Progress Notes and/or Discharge Summary and indicate if the condition was present on admission. MTDD
[2017-06-26 13:23] VITALS: BP 122/68
[2017-06-26] MEDS ORDERED: LASIX PO SCH (18:00)
== END 2017-06-26 16:51 | disposition home or self-care (01) | DRG 291 ==
LOC: ED 21:53 → 4A 06-22 15:28
PROVIDERS: ADMIT Internal Medicine; ATTEND Internal Medicine
DX: I11.0 Hypertensive heart disease with heart failure (principal); N17.0 Acute kidney failure with tubular necrosis; D68.69 Other thrombophilia; I48.2 Chronic atrial fibrillation; J44.9 Chronic obstructive pulmonary disease, unspecified; I50.43 Acute on chronic combined systolic (congestive) and diastolic (congestive) heart failure; I27.20 Pulmonary hypertension, unspecified; I42.0 Dilated cardiomyopathy; M10.9 Gout, unspecified; I25.10 Atherosclerotic heart disease of native coronary artery without angina pectoris; I73.9 Peripheral vascular disease, unspecified; Z79.82 Long term (current) use of aspirin; Z79.899 Other long term (current) drug therapy; Z95.2 Presence of prosthetic heart valve; Z95.810 Presence of automatic (implantable) cardiac defibrillator; Z82.49 Family history of ischemic heart disease and other diseases of the circulatory system; Z88.8 Allergy status to other drugs, medicaments and biological substances
CPT/HCPCS: 36415; 71020; 71275; 78452; 80048; 80162; 81001; 83880; 84484; 85025; 85027; 85379; 85520; 85610; 85730; 93005; 93010; 93017; 93306; 94640; 96374; 96375; 99285; A9502; J1644; J1650; J1940; J2270; J2785; J2920; Q9967